=== PATIENT | male | born 1940 | race Caucasian/White ===

== ENCOUNTER 2016-11-20 09:03 | Outpatient (CLI) | payer MEDICARE, BC ==
[~2016-11-20] VITALS: Ht 172.7 cm; Wt 85.3 kg
[2016-11-20] MEDS ORDERED: HYDR-3923 PO (09:20)
[2016-11-20] MEDS ORDERED: FURO40TA4 PO (09:20)
[2016-11-20 09:31] VITALS: BP 153/86
[2016-11-20] MEDS ORDERED: CHOL10007 PO (10:09)
[2016-11-20] MEDS ORDERED: CYAN50008 PO (10:09)
[2016-11-20] MEDS ORDERED: MULT1TAB60 PO (10:09)
== END 2016-11-20 16:51 ==
LOC: PREOP 09:03
PROVIDERS: ATTEND Orthopaedic Surgery
DX: Z01.818 Encounter for other preprocedural examination (principal); M48.06 Spinal stenosis, lumbar region
CPT/HCPCS: 87081